=== PATIENT | female | born 1950 | race Caucasian/White ===

== ENCOUNTER 2024-07-14 16:14 | Emergency (ER) | payer OTHER ==
[2024-07-14 16:27] VITALS: BMI 29.1
[2024-07-14] MEDS: SODIUM CHLORIDE 0.9% 500 ML INFUS.BAG IV ONE (18:15)
[2024-07-14 18:42] LABS: ALBUMIN 4.2 g/dl (3.4-5.0); BILIRUBIN,TOTAL 0.8 mg/dl (0.2-1); CALCIUM 9.3 mg/dl (8.5-10.1); CREATININE 0.6 mg/dl (0.6-1.3); MAGNESIUM 1.9 mg/dL (1.8-2.4); POTASSIUM 4.4 mmol/L (3.5-5.1); TOT PROT 6.3 g/dl (6.4-8.2)
[2024-07-14 18:52] LABS: HEMATOCRIT 37.7 % (32.4-45.2); HEMOGLOBIN 12.1 G/dL (10.7-15.3); MCH 28.7 pg (25.7-33.7); MCHC 32.2 g/dl (32.0-36.0); MEAN CELL VOLUME 89.2 fl (80-96); MEAN PLT VOLUME 8.6 fl (7.5-11.1); PLATELET COUNT 277.2 10^3/uL (134-434); RBC 4.23 10^6/uL (3.60-5.2); RDW 15.3 % (11.6-15.6); WHITE BLOOD COUNT 8.5 10^3/uL (4.0-10.8)
[2024-07-14 18:55] LABS: PLATELET ESTIMATE ADEQUATE
[2024-07-14 20:26] VITALS: BP 121/67; PULSE 72; RESP 16; TEMP 97.8
== END 2024-07-14 22:32 | disposition home or self-care (01) ==
LOC: FER 16:14
DX: R55 Syncope and collapse (principal); R42 Dizziness and giddiness; R53.83 Other fatigue
CPT/HCPCS: 36415; 70450-TC; 71046-TC-FY; 80053; 81003; 83735; 83880; 84484; 85027; 93005; 99285-25